=== PATIENT | male | born 1975 | race Two or more races ===

== ENCOUNTER → 2018-01-29 | Emergency (ER) | payer SELFPAY ==
[~2018-01-29] VITALS: Ht 172.7 cm; Wt 113.4 kg
[2018-01-29 12:09] VITALS: BP 120/61
== END | disposition home or self-care (01) ==
LOC: ER 12:06
DX: J03.90 Acute tonsillitis, unspecified (principal); F10.10 Alcohol abuse, uncomplicated; Y90.9 Presence of alcohol in blood, level not specified
CPT/HCPCS: 99283; A4606; Z7610; Z7502